=== PATIENT | female | born 1960 | race Caucasian/White ===

== ENCOUNTER 2017-07-02 20:09 | Emergency (ER) | payer MEDICAID ==
[~2017-07-02] VITALS: Ht 162.6 cm; Wt 70.8 kg
[2017-07-02 20:16] VITALS: Ht 162.6 cm; Wt 70.8 kg
[2017-07-03 00:39] VITALS: BP 156/95
== END 2017-07-03 00:39 | disposition home or self-care (01) ==
LOC: ED 20:09
DX: G44.209 Tension-type headache, unspecified, not intractable (principal); M62.830 Muscle spasm of back; I10 Essential (primary) hypertension; M54.2 Cervicalgia; M25.512 Pain in left shoulder; Z90.49 Acquired absence of other specified parts of digestive tract
CPT/HCPCS: 20552; J1885; J2001